=== PATIENT | female | born 1985 | race Caucasian/White ===

== ENCOUNTER 2021-08-13 12:09 | Emergency (ER) | payer OTHER ==
[~2021-08-13] VITALS: Ht 170.2 cm; Wt 113.4 kg
[2021-08-13 12:16] VITALS: BP 110/78
[2021-08-13] MEDS ORDERED: IBUP800T27 PO (13:18)
[2021-08-13] MEDS ORDERED: IBUPROFEN 800 MG TAB PO ONE (13:30)
== END 2021-08-13 13:32 | disposition home or self-care (01) ==
LOC: ER 12:09
DX: S93.401A Sprain of unspecified ligament of right ankle, initial encounter (principal); J45.909 Unspecified asthma, uncomplicated; Z79.1 Long term (current) use of non-steroidal anti-inflammatories (NSAID); Z88.0 Allergy status to penicillin; Z88.2 Allergy status to sulfonamides; X50.1XXA Overexertion from prolonged static or awkward postures, initial encounter; Y93.89 Activity, other specified; Y92.89 Other specified places as the place of occurrence of the external cause; Y99.8 Other external cause status
CPT/HCPCS: 73610